=== PATIENT | female | born 1955 | race Caucasian/White ===

== ENCOUNTER 2022-07-13 08:00 | Outpatient (CLI) | payer MEDICARE ==
[2022-07-13 15:04] LABS: BILIRUBIN,URINE NEGATIVE (NEGATIVE); GLUCOSE, URINE (UA) NEGATIVE (NEGATIVE); KETONES,URINE (UA) NEGATIVE (NEGATIVE); LEUKOCYTE ESTERASE, URINE LARGE (NEGATIVE); NITRITE,URINE POSITIVE (NEGATIVE); OCCULT BLOOD,URINE MODERATE (NEGATIVE); PROTEIN,URINE NEGATIVE (NEGATIVE); UROBILINOGEN,URINE 0.2 (NORMAL) E.U./dL (NORMAL)
[2022-07-13 15:35] LABS: AMORPHOUS SEDIMENT,UR Few /LPF; BACTERIA,URINE Many /HPF (None Seen); CLARITY,URINE CLEAR (CLEAR); RBC,URINE TNTC /HPF (0-5); SQUAMOUS EPITHELIAL CELL,UR FEW Squamous (<= Few); WBC,URINE >25 /HPF (0-5)
== END 2022-07-13 23:59 | disposition home or self-care (01) ==
LOC: LAB.S 08:00
PROVIDERS: ATTEND Emergency Medicine
DX: R30.0 Dysuria (principal)
CPT/HCPCS: 81001; 87077; 87086; 87181

== ENCOUNTER 2023-09-01 17:25 | Outpatient (CLI) | payer MEDICARE ==
--- NOTE | 2023-09-01 18:30 | XRAY Report ---
PROCEDURE: Cervical Spine 2-3V INDICATIONS: NECK STRAIN TECHNIQUE: 3 view(s) of the cervical spine were acquired. COMPARISON: None. FINDINGS: Bones: No fractures or dislocations to the T2 level. The lateral masses of C1 appear intact on the odontoid view. No suspicious bony lesions. Status post ACDF of the cervical spine at C5-6. No hardw are complication. Straightening of cervical lordosis. Multilevel degenerative changes most pronounced at C4-5 and C6-7. Soft tissues: No prevertebral soft tissue swelling. IMPRESSION: No displaced fracture or traumatic subluxation. Straightening of cervical lordosis which may be related to positioning and/or concurrent muscle spasm s. Reviewed by: Evert Calderon MD on 09/01/2023 6:29 PM PDT Approved by: Evert Calderon MD on 09/01/2023 6:29 PM PDT Station ID: [id number]
== END 2023-09-01 23:59 | disposition home or self-care (01) ==
LOC: DI.S 17:25
PROVIDERS: ATTEND Emergency Medicine
DX: S16.1XXA Strain of muscle, fascia and tendon at neck level, initial encounter (principal)